=== PATIENT | female | born 1995 | race African-American/Black ===

== ENCOUNTER 2017-01-17 09:44 | Emergency (ER) | payer SELFPAY ==
[~2017-01-17] VITALS: Ht 165.1 cm; Wt 104.3 kg
[2017-01-17 09:58] VITALS: BP 113/68
== END 2017-01-17 11:04 | disposition home or self-care (01) ==
LOC: ER 09:46
DX: H60.92 Unspecified otitis externa, left ear (principal)

== ENCOUNTER 2017-01-26 00:29 | Emergency (ER) | payer SELFPAY ==
[~2017-01-26] VITALS: Ht 165.1 cm; Wt 108.9 kg
[2017-01-26 07:20] LABS: Urine RBC None Seen /hpf (0 - 4)
[2017-01-26 07:29] LABS: Urine Bilirubin Negative (Negative); Urine Color Yellow (Yellow); Urine Glucose Normal (Normal); Urine Ketone Negative (Negative); Urine Nitrite Negative (Negative); Urine Squamous Epithelial Cell FEW /hpf (<5); Urine Urobilinogen Normal (Negative)
[2017-01-26 07:30] LABS: Urine Blood 1+ /uL (Negative)
[2017-01-26 07:40] VITALS: BP 128/79
== END 2017-01-26 08:00 | disposition home or self-care (01) ==
LOC: ER 00:29
DX: F41.9 Anxiety disorder, unspecified (principal); H92.02 Otalgia, left ear
CPT/HCPCS: 81001; 81025

== ENCOUNTER 2018-11-17 15:42 | Emergency (ER) | payer SELFPAY ==
[~2018-11-17] VITALS: Ht 170.2 cm; Wt 81.6 kg
[2018-11-17 16:12] VITALS: BP 147/92
[2018-11-17 17:13] LABS: Basophils # (auto) 0 uL; Basophils % (auto) 0.8 % (0.0-2.0); Chloride 108 mmol/L (98-107); Eosinophils # (auto) 0.2 uL; Eosinophils % (auto) 5.6 % (0.0-7.0); Hematocrit 41.9 % (36.0-46.0); Hemoglobin 13.4 g/dL (12.2-16.2); Lymphocytes # (auto) 1.5 uL; Lymphocytes % (auto) 35.8 % (10.0-50.0); Mean Corpuscular Hemoglobin 27.5 pg (28.0-32.0); Mean Corpuscular Hgb Conc. 31.9 g/dL (32.0-36.0); Monocytes # (auto) 0.5 uL; Neutrophils % (auto) 46.8 % (37.0-80.0); Nucleated Red Blood Cells % 0.2 %; Platelet Count (auto) 298 10^3/uL (140-450); Potassium 3.6 mmol/L (3.5-5.1); Red Blood Cells 4.87 10^6/uL (4.0-5.20); Red Cell Distribution Width 13.7 % (11.8-14.3); Sodium 140 mmol/L (136-145); White Blood Cell 4.2 10^3/uL (4.4-10.8)
[2018-11-17 17:14] LABS: Urine Bacteria NONE SEEN /hpf (None Seen); Urine Blood Negative /uL (Negative); Urine Specific Gravity 1.015 (1.001-1.035); Urine WBC 10 /hpf (0 - 5)
[2018-11-17 17:17] LABS: Albumin 3.9 g/dL (3.4-5.0); Anion Gap 9 (5-15); Blood Alcohol < 3.0 mg/dL (0-5); Blood Urea Nitrogen 12 mg/dL (7-18); Calcium 8.9 mg/dL (8.5-10.1); Carbon Dioxide 23 mmol/L (21-32); Glucose 70 mg/dL (74-106)
[2018-11-17 17:19] LABS: Alanine Aminotransferase 19 U/L (13-56); Aspartate Aminotransferase 15 U/L (15-37); BUN/Creatinine Ratio 15.2; GFR African American 117 mL/min; GFR Non-African American 97 mL/min
[2018-11-17 17:22] LABS: Alkaline Phosphatase 42 U/L (45-117); Bilirubin, Total 0.4 mg/dL (0.2-1.0); Total Protein 8.3 g/dL (6.4-8.2)
[2018-11-17 17:24] LABS: Salicylate < 1.7 mg/dL (2.8-20.0)
[2018-11-17 17:25] LABS: Alcohol, Urine < 3.0 mg/dL (0-5); Amphetamine Screen, Urine NEGATIVE (NEGATIVE); Barbiturate Scree,Urine NEGATIVE (NEGATIVE); Benzodiazephine Screen, Urine NEGATIVE (NEGATIVE); Cannabinoid Screen, Urine NEGATIVE (NEGATIVE); Cocaine Screen, Urine NEGATIVE (NEGATIVE); Opiate Scree,Urine NEGATIVE (NEGATIVE); Phencyclidine Screen, Urine NEGATIVE (NEGATIVE)
[2018-11-17 17:47] LABS: Acetaminophen < 2.0 ug/mL (10-30)
[2018-11-17] MEDS ORDERED: CIPROFLOXACIN HCL 500 MG TAB PO ONE (18:00)
== END 2018-11-17 23:26 | disposition left against medical advice (07) ==
LOC: ER 16:05
DX: F41.1 Generalized anxiety disorder (principal); F32.9 Major depressive disorder, single episode, unspecified; N39.0 Urinary tract infection, site not specified; Z53.29 Procedure and treatment not carried out because of patient's decision for other reasons
CPT/HCPCS: 36415; 71046; 80053; 80307; 80320; 80329; 81001; 84702; 85025

== ENCOUNTER 2020-03-15 11:19 | Emergency (ER) | payer SELFPAY ==
[~2020-03-15] VITALS: Ht 170.2 cm; Wt 68.0 kg
[2020-03-15 11:25] VITALS: BP 132/87
== END 2020-03-15 12:42 | disposition home or self-care (01) ==
LOC: ER 11:19
DX: H61.23 Impacted cerumen, bilateral (principal)
CPT/HCPCS: 69209

== ENCOUNTER 2021-09-13 08:35 | Emergency (ER) | payer MEDICAID ==
[~2021-09-13] VITALS: Ht 170.2 cm; Wt 88.5 kg
[2021-09-13 08:50] VITALS: BP 151/82
== END 2021-09-13 09:46 | disposition home or self-care (01) ==
LOC: ER 08:35
DX: S90.112A Contusion of left great toe without damage to nail, initial encounter (principal); X58.XXXA Exposure to other specified factors, initial encounter; Y93.89 Activity, other specified; Y92.89 Other specified places as the place of occurrence of the external cause; Y99.8 Other external cause status

== ENCOUNTER 2022-09-18 21:55 | Emergency (ER) | payer SELFPAY ==
[~2022-09-18] VITALS: Ht 170.2 cm; Wt 91.7 kg
[2022-09-18 23:30] VITALS: BP 128/82
== END 2022-09-19 00:38 | disposition home or self-care (01) ==
LOC: ER 21:55
DX: H61.22 Impacted cerumen, left ear (principal); F41.9 Anxiety disorder, unspecified
CPT/HCPCS: 69209

== ENCOUNTER 2023-01-23 13:44 | Emergency (ER) | payer SELFPAY ==
[~2023-01-23] VITALS: Ht 170.2 cm; Wt 86.0 kg
[2023-01-23 14:00] VITALS: BP 116/61
[2023-01-23] MEDS ORDERED: TRIA0.02 TOP (15:08)
== END 2023-01-23 15:31 | disposition home or self-care (01) ==
LOC: ER 13:44
DX: L25.9 Unspecified contact dermatitis, unspecified cause (principal); F41.9 Anxiety disorder, unspecified

== ENCOUNTER 2023-05-04 20:14 | Emergency (ER) | payer SELFPAY ==
[~2023-05-04] VITALS: Ht 170.2 cm; Wt 85.9 kg
[~2023-05-04 20:14] MED LIST: TRIA0.02 TOP
[2023-05-04 20:44] VITALS: BP 120/75; PULSE 94; RESP 18; O2SAT 98
== END 2023-05-05 02:25 | disposition left against medical advice (07) ==
LOC: ER 20:16
DX: S61.334A Puncture wound without foreign body of right ring finger with damage to nail, initial encounter (principal); Z53.21 Procedure and treatment not carried out due to patient leaving prior to being seen by health care provider; X58.XXXA Exposure to other specified factors, initial encounter; Y93.89 Activity, other specified; Y92.89 Other specified places as the place of occurrence of the external cause; Y99.8 Other external cause status

== ENCOUNTER 2023-07-26 11:27 | Emergency (ER) | payer SELFPAY ==
[~2023-07-26] VITALS: Ht 170.2 cm; Wt 91.5 kg
[2023-07-26 13:27] VITALS: BP 125/74; PULSE 93; RESP 16; TEMP 97.9; O2SAT 98
== END 2023-07-26 14:32 | disposition home or self-care (01) ==
LOC: ER 11:27
DX: H61.23 Impacted cerumen, bilateral (principal); F41.9 Anxiety disorder, unspecified; Z79.899 Other long term (current) drug therapy
CPT/HCPCS: 69210

== ENCOUNTER 2023-08-07 08:21 | Emergency (ER) | payer SELFPAY ==
[~2023-08-07] VITALS: Ht 170.2 cm; Wt 92.4 kg
[2023-08-07 08:57] VITALS: BP 114/62; PULSE 79; RESP 16; TEMP 97.8; O2SAT 98
== END 2023-08-07 09:23 | disposition home or self-care (01) ==
LOC: ER 08:21
DX: H61.22 Impacted cerumen, left ear (principal); F41.9 Anxiety disorder, unspecified; Z79.899 Other long term (current) drug therapy
CPT/HCPCS: 69209